=== PATIENT | female | born 1980 | race Caucasian/White ===

== ENCOUNTER → 2016-11-23 | Outpatient (CLI) | payer BC | END | disposition home or self-care (01) | LOC: MERGE 15:23 → C.LABBC 15:23 | PROVIDERS: ATTEND Physician Assistant | DX: G35 Multiple sclerosis (principal) ==

== ENCOUNTER → 2016-12-08 | Outpatient (CLI) | payer BC | END | disposition home or self-care (01) | LOC: C.LABPBG 15:40 | PROVIDERS: ATTEND Physician Assistant | DX: G35 Multiple sclerosis (principal) ==

== ENCOUNTER → 2016-12-23 | Outpatient (CLI) | payer BC ==
[~2016-12-23] MED LIST: GADAVIST IV PRN
--- NOTE | 2016-12-23 10:46 | DIAGNOSTIC IMAGING REPORT ---
MRI OF THE CERVICAL SPINE COMBO CLINICAL HISTORY: Multiple sclerosis. COMPARISON STUDY: No priors. TECHNIQUE: MRI of the cervical spine is performed utilizing various T1 and T2-weighted sequences in the axial and sagittal planes. Contrast-enhanced sequences are acquired following the IV administration of 8.5 mL of Gadavist. FINDINGS: Cervical spine: Vertebral body height and alignment are maintained throughout the cervical spine. Normal marrow signal intensity is preserved throughout the visualized bony structures. The atlantodental articulation appears preserved. The spinous processes are intact. Intervertebral discs: Normal in height and signal intensity. Spinal cord: There is a 5 mm focus of T2 signal abnormality identified within the right aspect of the cord at the level of C6. This is best seen on sagittal STIR image number 8. The cervical spinal cord is otherwise normal in morphology and signal intensity. No abnormal enhancement is identified within the cord on the postcontrast sequences. C2-C3: Unremarkable. C3-C4: Unremarkable. C4-C5: Unremarkable. C5-C6: Unremarkable. C6-C7: Unremarkable. C7-T1: Unremarkable. Soft tissues: The thyroid gland appears enlarged and heterogeneous. The prevertebral and paraspinous soft tissues are normal in appearance. Brain parenchyma: Partially imaged brain parenchyma at the skull base is within normal limits. IMPRESSION: 1. There is a 5 mm focus of T2 signal abnormality identified within the cervical cord at the level of C6. This likely corresponds to the reported history of multiple sclerosis. No abnormal cord enhancement is identified on the postcontrast images. 2. There is no disc herniation, central canal stenosis, or neural foraminal narrowing identified throughout the cervical spine. 3. The thyroid gland appears enlarged and heterogeneous. This is not well assessed on this examination. Correlation with serum thyroid function studies is recommended. Dictated: 12/23/2016 10:30 AM Transcribed: 12/23/2016 10:46 AM [email or web address] Electronically signed by: Codey Hernandes M.D. 12/23/2016 11:19 AM Dictated Date/Time: 12/23/2016 10:30 AM
== END | disposition home or self-care (01) ==
LOC: C.MRIBC 09:12
PROVIDERS: ATTEND Physician Assistant
DX: G35 Multiple sclerosis (principal); R93.8 Abnormal findings on diagnostic imaging of other specified body structures